=== PATIENT | male | born 1990 | race Caucasian/White ===

== ENCOUNTER 2017-01-26 08:32 | Emergency (ER) | payer OTHER ==
[~2017-01-26] VITALS: Ht 182.9 cm; Wt 77.1 kg
[2017-01-26 08:33] VITALS: BP 130/88
--- NOTE | 2017-01-26 08:37 | NUR ---
PT PRESENTS TO ER W/C/O LEFT WRIST throbbing PAIN X1 MONTH. HX GANGLION CYST. SKIN IS PINK/WARM/DRY; AAOX4 WITH EVEN AND STEADY GAIT; LUNGS CLEAR BL; HR EVEN AND REGULAR; PATIENT STATES PAIN OF 7/10 AT THIS TIME; VSS; PATIENT POSITIONED FOR COMFORT; HOB ELEVATED; BEDRAILS UP X2; BED DOWN. ER MD MADE AWARE OF PT STATUS.
--- NOTE | 2017-01-26 08:37 | NUR ---
Patient ambulated to bed 7. RN evaluating patient at bedside.
--- NOTE | 2017-01-26 08:39 | NUR ---
Dr. Campbell evaluating patient at bedside.
--- NOTE | 2017-01-26 08:39 | NUR ---
Sharon barr in [facility] - 01/26/17 at 0839 by [facility] Patient being evaluated by DR AMOS at bedside.
--- NOTE | 2017-01-26 08:42 | NUR ---
Patient discharged with v/s stable. Written and verbal after care instructions given and explained. Patient verbalized understanding. Ambulatory with steady gait. All questions addressed prior to discharge. Advised to follow up with PMD.
[2017-01-26 08:45] VITALS: BP 130/88
== END 2017-01-26 08:42 | disposition home or self-care (01) ==
LOC: MED 08:32
DX: M67.432 Ganglion, left wrist (principal); R03.0 Elevated blood-pressure reading, without diagnosis of hypertension
CPT/HCPCS: 99281